=== PATIENT | male | born 1940 | race Caucasian/White ===

== ENCOUNTER 2017-03-24 07:52 | Day surgery (SDC) | payer MEDICARE ==
[~2017-03-24 07:52] MED LIST: AMARYL2 M1 PO; ASPIR-LOW81 M1 PO; COREG6.25 M1 PO; CPAP; DEMADEX20 M1 PO; ENALAPRIL MALEA20 M1 PO; FLOMAX0.4 M1 PO; GLUCOPHAGE XR750 M1 PO; LEVEMIR100 UNITS/ SC; MECLIZINE HCL25 M3 PO; POTASSIUM CHLO10 ME2 PO; TYLENOL325 M2 PO; VITAMIN D5000 UNI1 PO; ZOCOR20 M1 PO
[2017-03-25 05:15] LABS: HCT-HEMATOCRIT 37.8 % (36.0-53.5); HGB-HEMOGLOBIN 11.9 gm/dl (13.5-17.0); MCV (MEAN CELL VOLUME) 85.3 fl (82.0-96.0); RED CELL DISTRIBUTION WIDTH 14.5 % (12.4-16.4)
[2017-03-25] MEDS ORDERED: PERCOCET 5-3251 EACH PO (07:31)
[2017-03-25] MEDS ORDERED: CIPRO500 M2 PO (07:32)
[2017-03-25] MEDS ORDERED: DISCONTINUE: (13:08)
[2017-03-25] MEDS ORDERED: STOOL SOFTENER (14:23)
[2017-03-25] MEDS ORDERED: FLOMAX0.4 M1 PO (23:02)
== END 2017-03-25 14:55 ==
LOC: SHSA 07:52 → ORW 11:20 → PACU 13:04 → SHSA 13:57 → 5WD 18:02
PROVIDERS: Urology
PROC: 0VT08ZZ Resection of Prostate, Via Natural or Artificial Opening Endoscopic (ICD-10-PCS; principal; 2017-03-24)
DX: N40.1 Benign prostatic hyperplasia with lower urinary tract symptoms (principal); R33.8 Other retention of urine; I10 Essential (primary) hypertension; E11.9 Type 2 diabetes mellitus without complications; Z86.73 Personal history of transient ischemic attack (TIA), and cerebral infarction without residual deficits; G47.30 Sleep apnea, unspecified; Z79.82 Long term (current) use of aspirin; Z87.891 Personal history of nicotine dependence; Z79.899 Other long term (current) drug therapy; Z98.890 Other specified postprocedural states
CPT/HCPCS: J0690; J1815

== ENCOUNTER 2017-03-25 22:14 | Emergency (ER) | payer MEDICARE ==
[~2017-03-25 22:14] MED LIST changes: +CIPRO500 M2 PO; +DISCONTINUE:; +PERCOCET 5-3251 EACH PO; +STOOL SOFTENER
[2017-03-25] MEDS ORDERED: FLOMAX0.4 M1 PO (23:02)
== END 2017-03-25 23:22 ==
LOC: EDMED 22:14
DX: R33.9 Retention of urine, unspecified (principal); E11.9 Type 2 diabetes mellitus without complications; I10 Essential (primary) hypertension; E66.01 Morbid (severe) obesity due to excess calories; Z87.891 Personal history of nicotine dependence; Z79.82 Long term (current) use of aspirin; Z79.899 Other long term (current) drug therapy